=== PATIENT | male | born 1945 | race Caucasian/White ===

== ENCOUNTER 2018-07-31 09:47 | Inpatient (IN) | payer OTHER, MEDICARE ==
--- NOTE | 2018-07-30 17:36 | GHP ---
DATE OF ADMISSION: 07/31/2018 CHIEF COMPLAINT: Right ankle. HISTORY OF PRESENT ILLNESS: Patient is a 72-year-old with history of progressive right ankle pain. He has been having limitations in his activity level, secondary to his pain. PAST MEDICAL HISTORY: Positive for hypertension and increased cholesterol. MEDICATIONS: Includes celecoxib, losartan/hydrochlorothiazide, rosuvastatin, and zolpidem. ALLERGIES: He lists no drug allergies. SOCIAL HISTORY: Negative for tobacco use. PAST SURGICAL HISTORY: Positive for a left ankle total ankle arthroplasty, right elbow surgery, left total knee arthroplasty, and a right quadriceps repair. FAMILY HISTORY: Noncontributory. PHYSICAL EXAMINATION: GENERAL: He is in overall appearing in good health in no acute distress. TATI NT: Head is normocephalic. Pupils equal, round, reactive to light. Extraocular eye movements intac t. NECK: Supple. No JVD or lymphadenopathy. CHEST: Clear to auscultation. HEART: Regular rate and rhythm. No murmurs or gallops. ABDOMEN: Soft, nondistended. No organomegaly. EXTREMITIES: Ex am reveals tenderness about the anterior aspect of his ankle with diminished ankle range of motion. ASSESSMENT: Right ankle arthrosis. PLAN: Patient is scheduled to undergo a right total ankle arthroplasty. /[id number]/MODL
[2018-07-31] MEDS ORDERED: BUPIVACAINE 0.5% 30 ML SDV ONE ×2 (10:07→10:10)
[2018-07-31] MEDS ORDERED: LR 1,000 ML IV SCH (10:08)
[2018-07-31] MEDS ORDERED: ceFAZolin 2 GM/DEXTROSE 100 ML IV ONE (10:08)
[2018-07-31] MEDS ORDERED: cefOXitin SODIUM 2 GM in NS 100 ML IV ONE (10:08)
[2018-07-31] MEDS ORDERED: LIDOCAINE 1% 2 ML INJ ID PRN (10:09)
[2018-07-31] MEDS ORDERED: LR 1,000 ML IV ONE (10:09)
[2018-07-31] MEDS ORDERED: LIDOCAINE 1% 5 ML SDV ONE (10:10)
[2018-07-31] MEDS ORDERED: MIDAZOLAM 2 MG/2 ML VIAL ONE (10:16)
--- NOTE | 2018-07-31 11:10 | PDANEPAE ---
ANE History of Present Illness 72 year old male for right ankle arthroplasty. History of HTN, elevated cholesterol and OA. ANE Past Medical History - Cardiovascular History Hx Hypertension: Yes Hx Arrhythmias: No Hx Chest Pain: No Hx Coronary Artery / Peripheral Vascular Disease: No Hx CHF / Valvular Disease: No Hx Palpitations: No - Pulmonary History Hx COPD: No Hx Asthma/Reactive Airway Disease: No Hx Recent Upper Respiratory Infection: No Hx Oxygen in Use at Home: No Hx Sleep Apnea: No Sleep Apnea Screening Result - Last Documented: Positive Pulmonary History Comment: SANDHYA triggers - Neurologic History Hx Cerebrovascular Accident: No Hx Seizures: No Hx Dementia: No Neurologic History Comment: right ulnar nerve tingling, numbness - Endocrine History Hx Diabetes: No - Renal History Hx Renal Disorders: Yes Renal History Comment: hx kidney stones - Liver History Hx Hepatic Disorders: No - Neurological & Psychiatric Hx Hx Neurological and Psychiatric Disorders: No - Cancer History Hx Cancer: No - Congenital Disorder History Hx Congenital Disorders: No - GI History Hx Gastrointestinal Disorders: No - Other Health History Other Health History: bilateral hearing aids. osteoarthritis - Chronic Pain History Chronic Pain: Yes (arthritis) - Surgical History Prior Surgeries: left TKA, 2009. left ankle replacement, 2011. right elbow distal tunnel surgery. kidney stone removel ANE Review of Systems Review of systems is: negative Review of Systems: - Exercise capacity METS (RN): 4 METS ANE Patient History - Allergies Allergies/Adverse Reactions: No Allergies [NKDA] Allergy (Verified 07/23/18 11:45) - Home Medications Home Medications: celeCOXIB [Celebrex (*)] 200 mg PO DAILY 11/25/11 [Last Taken 07/24/18] Losartan/Hctz 50/12.5 [Hyzaar 50/12.5MG (*)] 1 tab PO DAILY 07/23/18 [Last Taken 07/31/18 07:00] Rosuvastatin Calcium [Crestor 40mg (*)] 40 mg PO DAILY 07/23/18 [Last Taken 07:00] - NPO status NPO Since - Liquids (Date): 07/31/18 NPO Since - Liquids (Time): 10:00 NPO Since - Solids (Date): 07/30/18 NPO Since - Solids (Time): 20:00 - Smoking Hx Smoking Status: Never smoked - Family Anes Hx Family Hx Anesthesia Complications: none ANE Labs/Vital Signs - Vital Signs Blood Pressure: 128/82 Heart Rate: 60 Respiratory Rate: 16 O2 Sat (%): 98 Height: 177.8 cm Weight: 83.915 kg ANE Physical Exam - Airway Neck exam: FROM Mallampati Score: Class 2 Mouth exam: normal dental/mouth exam - Pulmonary Pulmonary: no respiratory distress - Cardiovascular Cardiovascular: regular rate and rhythym - ASA Status ASA Status: II ANE Anesthesia Plan Anesthesia Plan: GA w LMA Regional Anesthesia: adductor canal FNB, popliteal SNB
[2018-07-31] MEDS ORDERED: PROPOFOL/EMULSION 500 MG/50 ML BOTTLE IV ONE (12:44)
[2018-07-31] MEDS ORDERED: fentaNYL 100 MCG/2 ML INJ ONE (12:44)
[2018-07-31] MEDS ORDERED: LIDOCAINE 2% 100 MG/5 ML SYR ONE ×2 (12:46)
[2018-07-31] MEDS ORDERED: DEXAMETHASONE 4 MG/ML VIAL ONE (12:46)
[2018-07-31] MEDS ORDERED: ONDANSETRON 4 MG/2 ML VIAL ONE (12:46)
[2018-07-31] MEDS ORDERED: ePHEDrine SULFATE 25 MG/5 ML SYR ONE (13:04)
[2018-07-31] MEDS ORDERED: BUPIVACAINE 0.25% 550 ML in PUMP SET 1 EA NB SCH (14:30)
[2018-07-31] MEDS ORDERED: ROPIVACAINE HCL 150 MG/30 ML INJ ONE (14:36)
[2018-07-31] MEDS ORDERED: fentaNYL 100 MCG/2 ML INJ IVP PRN (14:43)
[2018-07-31] MEDS ORDERED: oxyCODONE IR 5 MG TAB PO PRN ×2 (14:43→14:57)
[2018-07-31] MEDS ORDERED: METOCLOPRAMIDE 10 MG/2 ML VIAL IVP PRN (14:43)
[2018-07-31] MEDS ORDERED: ONDANSETRON 4 MG/2 ML VIAL IVP PRN ×2 (14:43→14:57)
[2018-07-31] MEDS ORDERED: ACETAMINOPHEN 500 MG TAB PO PRN (14:43)
[2018-07-31] MEDS ORDERED: PROMETHAZINE HCL 25 MG/ML INJ IVP PRN (14:43)
[2018-07-31] MEDS ORDERED: NALOXONE HCL 0.4 MG/ML INJ IVP PRN (14:43)
[2018-07-31] MEDS ORDERED: DEXAMETHASONE 4 MG/ML VIAL IVP PRN (14:43)
[2018-07-31] MEDS ORDERED: PHENYLEPHRINE HCL 100 MCG/ML SYR IVP PRN (14:43)
[2018-07-31] MEDS ORDERED: ALBUTEROL 3 ML DEYVIAL IH PRN (14:43)
[2018-07-31] MEDS ORDERED: HYDROCODONE/APAP 5/325 TAB PO PRN (14:43)
[2018-07-31] MEDS ORDERED: LR 500 ML IV PRN (14:43)
[2018-07-31] MEDS ORDERED: MEPERIDINE 25 MG/0.5 ML AMP IVP PRN (14:43)
[2018-07-31] MEDS ORDERED: LABETALOL HCL 5 MG/ML 20 ML MDV IVP PRN (14:43)
[2018-07-31] MEDS ORDERED: ONDANSETRON DISINTEGRATING 4 MG TAB PO PRN (14:57)
--- NOTE | 2018-07-31 14:57 | POSTOPPROG ---
Post Op Note Date of Operation: 07/31/18 Surgeon: Rodriguez Petit Leadite Heater: Rosalio Warner PA-C Pre-op Diagnosis: osteoarthritis right ankle Post-op Diagnosis: osteoarthritis right ankle Procedure: right total ankle arthroplasty Inf/Abcess present in the surg proc area at time of surgery?: No EBL: Minimal Complications: none Drains: Other (none)
--- NOTE | 2018-07-31 16:08 | PDMN ---
Medical Necessity Medical necessity: [facility] Musculoskeletal surgery or Procedure: 72 yo sp CPT 20994 ankle arthroplasty w/ implant, [facility] IP only
--- NOTE | 2018-07-31 16:37 | POSTANESTH ---
Post Anesthetic Evaluation Cardiovascular Status: Normal, Stable Respiratory Status: Normal, Stable Level of Consciousness/Mental Status: Can Participate in Eval Pain Control: Adequate, Prn Tx Ordered Nausea/Vomiting Control: Adequate, Prn Tx Ordered Complications Possibly Related to Anesthesia: None Noted Notes: mild L corneal abrasion-covered with soft patch
[2018-07-31] MEDS ORDERED: LACTULOSE 20 GM/30 ML UDCUP PO PRN (17:14)
[2018-07-31] MEDS ORDERED: MAGNESIUM HYDROXIDE 30 ML UDCUP PO PRN (17:14)
[2018-07-31] MEDS ORDERED: BISACODYL 10 MG SUPP PR PRN (17:14)
[2018-07-31] MEDS ORDERED: POLYETHYLENE GLYCOL 3350 17 GM PKT PO PRN (17:14)
[2018-07-31] MEDS: ACETAMINOPHEN 325 MG TAB PO PRN (17:39)
[2018-07-31] MEDS: PETROLAT,WHT/MIN OIL/SOD CHL 3.5 GM OPHT.OINT EACHEYE PRN ×2 (18:04→21:27)
[2018-07-31] MEDS: SENNOSIDES/DOCUSATE SODIUM TAB PO SCH (21:19)
[2018-07-31] MEDS: ceFAZolin 2 GM/DEXTROSE 100 ML IV SCH (21:20)
[2018-08-01] MEDS: ceFAZolin 2 GM/DEXTROSE 100 ML IV SCH (05:28)
[2018-08-01] MEDS: PETROLAT,WHT/MIN OIL/SOD CHL 3.5 GM OPHT.OINT EACHEYE PRN (05:29)
--- NOTE | 2018-08-01 05:45 | SOAPPROG ---
SOAP Progress Note Assessment/Plan: Assessment: S/P R TAA Pain minimal with nerve block Eye discomfort much better cain po + U/O Splint intact, no D/C toes with good cap refill decreased sensation d/t block Plan: OOB/PT D/C home 08/01/18 05:43 Objective: Vital Signs Temp Pulse Resp BP Pulse Ox 36.4 C 68 14 118/73 98 08/01/18 04:00 08/01/18 04:00 08/01/18 04:00 08/01/18 04:00 08/01/18 04:00 07/30/18 07/31/18 08/01/18 05:59 05:59 05:59 Intake Total 1844 Output Total 350 Balance 1494 ICD10 Worksheet Patient Problems: Problems Problem Status Onset Ankle arthritis Acute Ankle arthritis Acute - ICD10 Problem Qualifiers (1) Ankle arthritis (2) Ankle arthritis
[2018-08-01 07:54] VITALS: BP 132/70
--- NOTE | 2018-08-01 07:55 | GOP ---
DATE OF OPERATION: 07/31/2018 SURGEON: Rodriguez Petit MD CASE ASSISTANT: Rosalio Warner PA-C, who was necessary for the completion of surgery. ANESTHESIA: General plus indwelling popliteal and saphenous nerve blocks performed by the anesthesio logist at my request for postoperative pain management. PREOPERATIVE DIAGNOSIS: Right ankle arthrosis. POSTOPERATIVE DIAGNOSIS: Right ankle arthrosis. PROCEDURE PERFORMED: Right total ankle arthroplasty. FINDINGS: ESTIMATED BLOOD LOSS: Minimal. INDICATIONS: The patient is a 72-year-old with history of progressive right ankle pain. Clinically and radiographically, he is noted to have advanced right ankle arthritis. Based on his persistence o f symptoms, refractory to nonoperative treatment, he is interested in pursuing operative treatment. From an operative standpoint, options including arthrodesis and total ankle arthroplasty were discuss ed in detail. The patient elected to pursue total ankle arthroplasty. The patient acknowledged he u nderstood the potential risks including, but not limited to bleeding, infection, neurovascular damage leading to loss of limb, and limb function, implant failure necessitating revision, removal, amputat ion or below-knee amputation, pain or functional limitations, and anesthetic risks. He acknowledged he understood the potential risks, planned procedure, postop plan well, and had all questions answere d prior to surgery. He gave his consent for the operative procedure. DESCRIPTION OF PROCEDURE: The patient was brought in the operating room after IV antibiotics were ad ministered. Indwelling popliteal and saphenous nerve blocks were performed in preop holding by the a nesthesiologist at my request for postoperative pain management. General anesthetic was administered . Tourniquet was placed on the right thigh, bump underneath the right hip and shoulder, and right lo wer extremity was prepped and draped in standard sterile fashion. After marking the incision, Alexi wr ap exsanguination, tourniquet was inflated to 250. An anterior approach to the ankle was utilized fo r exposure. Skin and subcutaneous tissue were sharply incised. The extensor retinaculum was incised in line with the skin incision. The interval between the tibialis anterior and extensor hallucis lo ngus utilized for exposure. Care was taken to avoid damage to the neurovascular bundle. The capsule was longitudinally split and reflected medially and laterally. Advanced degenerative changes were n oted. The anterior osteophytes were removed with a chisel off the distal tibia, and talar neck osteo phytes were removed with a rongeur. The tibial cutting guide for the Integra Ester total ankle was placed. After optimally correcting for length, varus and valgus, rotation and translation, the cutt ing jig was pinned into place. Confirmation of position was confirmed both clinically and fluoroscop ically. After protecting the medial and lateral cuts with smooth pins, the tibial plafond cut was ma de utilizing a saw. The medial gutter holes were drilled initially and then further cut with a recip rocating saw. The cut bone fragments were removed with a rongeur. Adherent posterior fragments were removed of suture and rongeured off the posterior capsule. The attention was then directed towards the talus. The talar cutting block was applied and distraction through the jig was accomplished. Wi th the ankle held in neutral dorsiflexed position, the cutting block was pinned into place. Confirma tion of position was confirmed fluoroscopically. The talar dome cut was then made utilizing a saw. The posterior chamfer and anterior milling guides were sequentially placed on the talus and cut with a saw posteriorly and the milling drill bit anteriorly. A trial component was then impacted into narinder ce. The cuts were fine tuned posteriorly to allow for a flat fit of the implant across the cut fragm ent and cut segments. The tibia was then measured and a 2 X tibial provisional guide with 6 mm poly was placed. Prior to placing this portion of the deltoid was released off its talar insertion. Medi al and lateral osteophytes were removed from the gutters utilizing rongeur and a chisel. While the i mplant was able to be inserted, it was somewhat "snug." A small amount of additional tibia was remov ed with a saw. Peg holes were drilled through the trial implant. Definitive size 2 X tibial compone nt was then impacted into place after thoroughly irrigating the wound. Protecting the distal aspect of the tibial component, the size 2 talus was impacted into place. Fluoroscopic views confirmed favo rable positioning of both implants. A 6 mm polyethylene insert was placed. Favorable stability and range of motion were achieved. Attention was directed toward closure. The extensor retinaculum was closed with 2-0 Vicryl suture in interrupted fashion. Subcutaneous tissue closed with 3-0 Vicryl suture in interrupted fashion. Ski n closed with 3-0 nylon interrupted sutures. The wounds were dressed with sterile Adaptic, 4 x 4, an d Webril, and leg was placed in a below-knee splint. The patient tolerated the procedure well and wa s taken to the recovery room, extubated, in stable condition postoperatively. All sponge, needle, an d instrument counts were reported as being correct. DRAINS: None. COMPLICATIONS: None. PLAN: The patient would be admitted for overnight observation. He will be nonweightbearing on his o perative extremity. /[id number]/MODL
[2018-08-01] MEDS: SENNOSIDES/DOCUSATE SODIUM TAB PO SCH (08:57)
[2018-08-01] MEDS ORDERED: ENOXAPARIN 40 MG/0.4 ML SYR SC SCH (09:00)
[2018-08-01] MEDS: ACETAMINOPHEN 325 MG TAB PO PRN (09:09)
--- NOTE | 2018-08-01 11:06 | ASMTLACE ---
LACE Length of stay for Answers: 2 days current admission Acuity / Level of Answers: Yes Care: Did the patient have an inpatient admission? Comorbidities - select Answers: Opioid dependence all that apply / Chronic pain Other Notes: HTN # of Emergency department Answers: 0 visits in the last 6 months Score: 10 Date Signed: 08/01/2018 11:06 AM Electronically Signed By:LEILA Barros
--- NOTE | 2018-08-06 14:03 | GDS ---
ADMISSION DIAGNOSIS: Right ankle arthrosis. DISCHARGE DIAGNOSIS: Right ankle arthrosis. OPERATION PERFORMED: On 07/31, the patient underwent a total ankle arthroplasty. HISTORY RELATIVE TO THE ADMISSION: The patient is a 72-year-old with end-stage ankle arthritis. He is admitted for elective total ankle arthroplasty. HOSPITAL COURSE: The patient was taken to the med/surg floor in stable condition. Pain was well con trolled with indwelling nerve block. His medical condition was stable. On postoperative day 1, he w as in satisfactory condition for discharge home as he was medically stable, had pain controlled on ne rve block and oral analgesics and had successfully ambulated nonweightbearing on his operative extrem ity. DISCHARGE DISPOSITION: Discharged home.. Diet regular. Activity nonweightbearing on his right lower extremity. Follow up in 1 week. /[id number]/MODL
== END 2018-08-01 11:01 | disposition home or self-care (01) | DRG 469 ==
LOC: F3E 09:47 → F3N 14:41
PROVIDERS: ADMIT Orthopaedic Surgery Foot and Ankle Surgery; ATTEND Orthopaedic Surgery Foot and Ankle Surgery
PROC: 0SRF0JZ Replacement of Right Ankle Joint with Synthetic Substitute, Open Approach (ICD-10-PCS; principal; 2018-07-31 11:00)
DX: M19.071 Primary osteoarthritis, right ankle and foot (principal); I10 Essential (primary) hypertension; G47.33 Obstructive sleep apnea (adult) (pediatric); Z96.652 Presence of left artificial knee joint; Z96.662 Presence of left artificial ankle joint
CPT/HCPCS: 97116-GP; 97161-GP; 97165-GO; 97535-GO; G8978-GP-CI; G8979-GP-CI; G8980-GP-CI; G8987-GO-CI; G8988-GO-CI; G8989-GO-CI; J0690; J1100; J1650; J2001; J2250; J2405; J2704; J2795; J3010